=== PATIENT | female | born 1950 | race Caucasian/White ===

== ENCOUNTER → 2025-04-12 | Outpatient (CLI) | payer MEDICARE, SELFPAY ==
--- NOTE | 2025-04-12 10:57 | MRI_ITS ---
PROCEDURE: SPINE CERVICAL (ROUTINE) 04/12/2025 REASON FOR EXAM: PAIN, MYELOPATHY, HX OF FUSION TECHNIQUE: SPINE CERVICAL (ROUTINE) Multiplanar and multisequence images were obtained without IV contrast administration. COMPARISON: 11/18/2021 FINDINGS: Normal cervical vertebral body height and alignment. ACDF from C4-C6. Normal craniocervical junction. Normal marrow signal. There is a adjacent level pathology at C3-4 with a central protrusion which was also present previously abutting the ventral cord with a slight degree of remodeling but no edema. No recurrent pathology at C4-5 or C5-6. At C6-7 concentric annular bulging is unchanged from previous. MRI/Spine Cervical (Routine) IMPRESSION: No interval change from prior study. ACDF from C4-C6 with the adjacent level p athology most prominent at C3-4 with a broad-based disc protrusion. There is minimal remodeling of the ventral cord but I do not see definite myelomalacia Reading Location: [facility]
== END | disposition home or self-care (01) ==
PROVIDERS: PCP Internal Medicine; Referring Provider Student in an Organized Health Care Education/Training Program; Visit Provider Student in an Organized Health Care Education/Training Program
DX: G95.9 Disease of spinal cord, unspecified (principal)
CPT/HCPCS: 72141

== ENCOUNTER → 2025-06-07 | Outpatient (CLI) | payer MEDICARE, SELFPAY ==
--- NOTE | 2025-06-07 11:00 | MRI_ITS ---
PROCEDURE: SPINE LUMBAR W/WO CONTRAST 06/07/2025 REASON FOR EXAM: PAIN, STENOSIS, HX OF FUSION TECHNIQUE: Procedure Code: [id number] Modality: MR Procedure: SPINE LUMBAR W/WO CONTRAST Multiplanar and multisequence images were obtained without and with intravenous gadolinium-based contrast administration. CONTRAST: 14 cc Clariscan COMPARISON: December 18, 2021 FINDINGS: There is hardware fusion at L3-4. Laminectomy changes are noted. The vertebral body alignment is maintained. The vertebral body height is maintained. Vertebral body marrow signal is normal. Intervertebral disc signal is essentially normal. Normal appearing facets are noted. The L1-L2 level: There is moderate central and right and left paracentral disk protrusion. There is mild right and moderate left lateral recess stenosis. There is moderate bilateral foraminal narrowing secondary to disc protrusion and facet hypertrophy. There is no critical central canal stenosis. The L2-L3 level: There is mild central and right and left paracentral disk protrusion. There is mild bilateral lateral recess stenosis with mild bilateral foraminal stenosis secondary to disc protrusion and facet hypertrophy. There is no critical central canal stenosis. The L3-L4 level: There is mild central disk protrusion with increased signal in the margin of the disc consistent with a fissure. There is no lateral recess stenosis or foraminal stenosis. There is no critical central canal stenosis. The L4-L5 level: There is mild central disk protrusion. There is no lateral recess stenosis or foraminal stenosis. There is no critical central canal stenosis. The L5-S1 level: There is no significant disk protrusion. There is no lateral recess stenosis or foraminal stenosis. There is no critical central canal stenosis. The visualized conus shows normal signal characteristics. Adjacent soft tissues are unremarkable. There is no suspicious lesion following contrast. MRI/Spine Lumbar W/WO Contrast IMPRESSION: There is no central canal stenosis, with lateral recess and foraminal narrowing . There is hardware in position with no suspicious enhancing lesions. Reading [facility]
== END | disposition home or self-care (01) ==
LOC: MRI 10:59
PROVIDERS: PCP Internal Medicine; Referring Provider Student in an Organized Health Care Education/Training Program; Visit Provider Student in an Organized Health Care Education/Training Program
DX: M48.062 Spinal stenosis, lumbar region with neurogenic claudication (principal); Z98.1 Arthrodesis status
CPT/HCPCS: 72158; A9575; A4216